=== PATIENT | female | born 1980 | race Hispanic/Latino ===

== ENCOUNTER 2024-01-12 22:35 | Emergency (ER) | payer SELFPAY | END 2024-01-13 02:05 | disposition home or self-care (01) | LOC: ERS 22:35 | DX: S80.01XA Contusion of right knee, initial encounter (principal); S90.31XA Contusion of right foot, initial encounter; S90.811A Abrasion, right foot, initial encounter; V89.2XXA Person injured in unspecified motor-vehicle accident, traffic, initial encounter | CPT/HCPCS: 93005 ==